=== PATIENT | male | born 1935 | race Two or more races ===

== ENCOUNTER 2021-04-01 09:20 | Emergency (ER) | payer MEDICARE, MEDICAID ==
[~2021-04-01] VITALS: Ht 167.6 cm; Wt 95.3 kg
[~2021-04-01 09:20] MED LIST: ATOR10TA PO; CITA-73 PO; CLOP75TA28 PO; FURO20TA3 PO; GABA100C9 PO; METF850T PO; METO25TA93 PO; NOVOLOG SC; POTA-167 PO; RAMI10CA38 PO; SITA100T7 PO
[2021-04-01] MEDS ORDERED: ALPRAZolam 0.5 MG TAB PO ONE (09:45)
[2021-04-01] MEDS ORDERED: cloNIDine HCL 0.1 MG TAB PO ONE (09:45)
[2021-04-01 14:59] VITALS: BP 116/57
== END 2021-04-01 15:01 | disposition home or self-care (01) ==
LOC: EDBD 09:20 → ER 09:20
DX: F41.8 Other specified anxiety disorders (principal); I16.0 Hypertensive urgency; I11.0 Hypertensive heart disease with heart failure; I50.9 Heart failure, unspecified; E11.9 Type 2 diabetes mellitus without complications; E78.5 Hyperlipidemia, unspecified; Z79.01 Long term (current) use of anticoagulants; Z79.899 Other long term (current) drug therapy; Z20.822 Contact with and (suspected) exposure to COVID-19
CPT/HCPCS: 36415; 71045; 87426; 93005

== ENCOUNTER 2021-09-16 18:48 | Inpatient (IN) | payer MEDICARE, MEDICAID ==
[~2021-09-16] VITALS: Ht 167.6 cm; Wt 100.2 kg
[2021-09-16] MEDS ORDERED: FUROSEMIDE 100 MG/10ML VIAL IV ONE (19:30)
[2021-09-16] MEDS ORDERED: NITROGLYCERIN 0.4MG/HR TOPICAL PATCH TD ONE (19:30)
[2021-09-16] MEDS ORDERED: LABETALOL HCL 5 MG/ML 4ML SYRINGE IV ONE (19:30)
[2021-09-16 19:52] LABS: Basophils # (auto) 0 10 ^3/uL (0-0.2); Basophils % (auto) 0.5 % (0.0-2.0); Eosinophils # (auto) 0.1 10 ^3/uL (0-0.8); Eosinophils % (auto) 1.7 % (0.0-7.0); Hematocrit 34.3 % (41.0-53.0); Hemoglobin 11.8 g/dL (13.5-17.5); Lymphocytes % (auto) 13.7 % (10.0-50.0); Mean Corpuscular Hemoglobin 31.8 pg (28.0-32.0); Mean Corpuscular Hgb Conc. 34.3 g/dL (32.0-36.0); Mean Corpuscular Volume 92.9 fL (80.0-100.0); Monocytes # (auto) 0.7 10 ^3/uL (0-1.3); Neutrophils # (auto) 5.7 10 ^3/uL (1.6-8.6); Neutrophils % (auto) 75.1 % (37.0-80.0); Nucleated Red Blood Cells % 0.1 %; Red Cell Distribution Width 13.8 % (11.8-14.3); White Blood Cell 7.6 10^3/uL (4.4-10.8)
[2021-09-16 20:02] LABS: Albumin 2.8 g/dL (3.4-5.0); Calcium 8.5 mg/dL (8.5-10.1); Potassium 4.1 mmol/L (3.5-5.1)
[2021-09-16 20:05] LABS: BUN/Creatinine Ratio 18.3; Bilirubin, Total 0.3 mg/dL (0.2-1.0); Total Protein 6.3 g/dL (6.4-8.2)
[2021-09-16] MEDS ORDERED: MORPHINE SULFATE INJ 2 MG/ml SYRG IV ONE (20:45)
[2021-09-16] MEDS ORDERED: ACETAMINOPHEN 325 MG TAB PO PRN (22:00)
[2021-09-16] MEDS ORDERED: MORPHINE SULFATE INJ 2 MG/ml SYRG IV PRN (22:00)
[2021-09-16] MEDS ORDERED: ATORVASTATIN 20 MG TAB PO SCH (22:00)
[2021-09-16] MEDS ORDERED: ONDANSETRON HCL 4 MG/2 ML VIAL IV PRN (22:00)
[2021-09-16] MEDS ORDERED: NITROGLYCERIN 0.4 MG SL TAB SL PRN (22:00)
[2021-09-16] MEDS ORDERED: DEXTROSE (50%) 50ML SYRG IV PRN (22:00)
[2021-09-16] MEDS ORDERED: TEMAZEPAM 15 MG CAP PO PRN (22:00)
[2021-09-16 23:32] LABS: Urine Bacteria NONE SEEN /hpf (None Seen); Urine Blood Negative /uL (Negative); Urine Hyaline Cast FEW /lpf (0 - 2); Urine Specific Gravity 1.012 (1.001-1.035); Urine WBC 1 /hpf (0 - 3)
[2021-09-17] MEDS ORDERED: TRAZ1TAB12 PO (05:35)
[2021-09-17] MEDS ORDERED: HYDR10TA26 PO (05:35)
[2021-09-17] MEDS ORDERED: METF-370 PO (05:35)
[2021-09-17] MEDS ORDERED: ATOR40TA52 PO (05:35)
[2021-09-17] MEDS ORDERED: GABA300C10 PO (05:35)
[2021-09-17] MEDS ORDERED: DONE1TAB88 PO (05:35)
[2021-09-17] MEDS: FUROSEMIDE 20 MG/2 ML VIAL IV SCH ×2 (06:11→17:35)
[2021-09-17] MEDS: ACCU-CHEK COMFORT CURVE STRIP VI SCH ×4 (06:13→21:20)
[2021-09-17] MEDS: InsuLIN REG 1unit/0.01ml Soln (100units/ml) SC SCH ×4 (06:31→21:30)
[2021-09-17 06:52] LABS: Basophils # (auto) 0 10 ^3/uL (0-0.2); Basophils % (auto) 0.3 % (0.0-2.0); Eosinophils # (auto) 0 10 ^3/uL (0-0.8); Eosinophils % (auto) 0.4 % (0.0-7.0); Hemoglobin 12.2 g/dL (13.5-17.5); Lymphocytes # (auto) 0.9 10 ^3/uL (0.4-5.4); Lymphocytes % (auto) 12.4 % (10.0-50.0); Mean Corpuscular Hemoglobin 31.9 pg (28.0-32.0); Monocytes # (auto) 0.6 10 ^3/uL (0-1.3); Monocytes % (auto) 8.4 % (0.0-12.0); Neutrophils # (auto) 5.7 10 ^3/uL (1.6-8.6); Neutrophils % (auto) 78.5 % (37.0-80.0); Red Blood Cells 3.82 10^6/uL (4.5-5.90); Red Cell Distribution Width 13.9 % (11.8-14.3); White Blood Cell 7.3 10^3/uL (4.4-10.8)
[2021-09-17 07:09] LABS: Albumin 2.9 g/dL (3.4-5.0); Calcium 8.6 mg/dL (8.5-10.1); Potassium 4.4 mmol/L (3.5-5.1)
[2021-09-17 07:14] LABS: BUN/Creatinine Ratio 22.6; Bilirubin, Total 0.3 mg/dL (0.2-1.0); Total Protein 6.8 g/dL (6.4-8.2)
[2021-09-17 09:00] VITALS: BP 177/42
[2021-09-17] MEDS ORDERED: PANTOPRAZOLE 40 MG TAB PO SCH (10:00)
[2021-09-17] MEDS ORDERED: SITAGLIPTIN PHOSPHATE 100 MG PO SCH (10:00)
[2021-09-17] MEDS ORDERED: RAMIPRIL 10 MG CAP PO SCH (10:00)
[2021-09-17] MEDS ORDERED: METOPROLOL SUCCINATE XL 50 MG TAB PO SCH (10:00)
[2021-09-17] MEDS: ENOXAPARIN SOD 40 MG/0.4 ML SYRINGE SC SCH (10:18)
[2021-09-17] MEDS: CLOPIDOGREL BISULFATE 75 MG TAB PO SCH (10:18)
[2021-09-17] MEDS: METOPROLOL SUCCINATE XL 50 MG TAB PO SCH (10:19)
[2021-09-17] MEDS ORDERED: amLODIPine BESYLATE 5 MG TAB PO ONE (10:45)
[2021-09-17] MEDS ORDERED: hydrALAZINE HCL 20 MG/ML VL IV PRN (10:45)
[2021-09-17 13:00] VITALS: BP 209/85
[2021-09-17] MEDS ORDERED: cloNIDine HCL 0.1 MG TAB PO PRN (15:30)
[2021-09-17] MEDS ORDERED: ISOSORBIDE MONONITRATE ER 60 MG TAB PO ONE (15:30)
[2021-09-17] MEDS ORDERED: RAMIPRIL 10 MG CAP PO ONE (15:30)
[2021-09-17 17:00] VITALS: BP 198/97
[2021-09-17 17:30] VITALS: BP 168/86
[2021-09-17 18:30] VITALS: BP 136/61
[2021-09-17 22:00] VITALS: BP 147/53
[2021-09-17] MEDS ORDERED: ATORVASTATIN 20 MG TAB PO SCH (22:00)
[2021-09-17] MEDS ORDERED: traZODone HCL 50 MG TAB PO SCH (22:00)
[2021-09-17] MEDS ORDERED: DONEPEZIL HYDROCHLORIDE 5 MG TAB PO SCH (22:00)
[2021-09-18 05:00] VITALS: BP 112/55
[2021-09-18 05:36] LABS: Potassium 3.9 mmol/L (3.5-5.1)
[2021-09-18] MEDS: FUROSEMIDE 20 MG/2 ML VIAL IV SCH (05:43)
[2021-09-18 05:45] LABS: Albumin 2.9 g/dL (3.4-5.0); BUN/Creatinine Ratio 20.3; Bilirubin, Total 0.6 mg/dL (0.2-1.0); Calcium 8.4 mg/dL (8.5-10.1); Total Protein 6.4 g/dL (6.4-8.2)
[2021-09-18] MEDS: ACCU-CHEK COMFORT CURVE STRIP VI SCH ×2 (05:56→12:47)
[2021-09-18] MEDS: InsuLIN REG 1unit/0.01ml Soln (100units/ml) SC SCH ×2 (06:31→12:48)
[2021-09-18] MEDS ORDERED: REGADENOSON 0.4 MG/5 ML SYRG IV ONE ×2 (07:39→07:45)
[2021-09-18 08:12] VITALS: BP 136/64
[2021-09-18 09:00] VITALS: BP 111/59
[2021-09-18] MEDS ORDERED: amLODIPine BESYLATE 5 MG TAB PO SCH (10:00)
[2021-09-18] MEDS ORDERED: RAMIPRIL 10 MG CAP PO SCH (10:00)
[2021-09-18] MEDS ORDERED: ISOSORBIDE MONONITRATE ER 60 MG TAB PO SCH (10:00)
[2021-09-18] MEDS ORDERED: CITALOPRAM HYDROBR 20 MG TAB PO SCH (10:00)
[2021-09-18] MEDS: ENOXAPARIN SOD 40 MG/0.4 ML SYRINGE SC SCH (10:11)
[2021-09-18] MEDS: CLOPIDOGREL BISULFATE 75 MG TAB PO SCH (10:15)
[2021-09-18] MEDS: METOPROLOL SUCCINATE XL 50 MG TAB PO SCH (10:16)
[2021-09-18 13:00] VITALS: BP 102/49
[2021-09-18] MEDS ORDERED: ALBUAER3 IN (13:05)
[2021-09-18] MEDS ORDERED: AZITTAB PO (13:05)
[2021-09-18 14:24] VITALS: BP 111/59
== END 2021-09-18 15:40 | disposition home or self-care (01) | DRG 194 ==
LOC: EDBD 18:48 → ER 18:48 → TELE 21:52 → TELE-WESTW 09-17 03:41
PROVIDERS: ADMIT Nurse Practitioner; ATTEND Internal Medicine
DX: I13.0 Hypertensive heart and chronic kidney disease with heart failure and stage 1 through stage 4 chronic kidney disease, or unspecified chronic kidney disease (principal); N17.9 Acute kidney failure, unspecified; J18.0 Bronchopneumonia, unspecified organism; E44.0 Moderate protein-calorie malnutrition; J45.901 Unspecified asthma with (acute) exacerbation; E11.22 Type 2 diabetes mellitus with diabetic chronic kidney disease; E11.42 Type 2 diabetes mellitus with diabetic polyneuropathy; I50.31 Acute diastolic (congestive) heart failure; D64.9 Anemia, unspecified; I16.0 Hypertensive urgency; R09.02 Hypoxemia; N18.30 Chronic kidney disease, stage 3 unspecified; Z20.822 Contact with and (suspected) exposure to COVID-19; E66.01 Morbid (severe) obesity due to excess calories; E78.5 Hyperlipidemia, unspecified; F32.A Depression, unspecified; I25.10 Atherosclerotic heart disease of native coronary artery without angina pectoris; Z68.35 Body mass index [BMI] 35.0-35.9, adult; Z79.4 Long term (current) use of insulin; Z83.3 Family history of diabetes mellitus; Z98.61 Coronary angioplasty status
CPT/HCPCS: 36415; 71045; 78452; 80053; 81001; 82962; 83735; 83880; 84443; 84484; 85025; 85379; 93005; 93017; 93306; 93970; 96374; 96375; 97163; G0378; J1815; J3490